=== PATIENT | male | born 1945 | race Caucasian/White ===

== ENCOUNTER 2018-02-02 09:05 | Inpatient (IN) | payer BC ==
[2018-01-25 14:38] LABS: BILIRUBIN,URINE NEGATIVE (NEGATIVE); BLOOD, URINE NEGATIVE (NEGATIVE); CLARITY/URINE CLEAR (CLEAR); COLOR,URINE YELLOW (YELLOW); GLUCOSE,URINE NEGATIVE (NEGATIVE); KETONES,URINE NEGATIVE (NEGATIVE); LEUKOCYTE ESTERASE ,URINE TRACE (NEGATIVE); NITRITE, URINE NEGATIVE (NEGATIVE); PH,URINE 5.5 (5.0-8.0); PROTEIN URINE NEGATIVE (NEGATIVE); UROBILINOGEN,URINE 0.2 (0.2-1.0)
[2018-01-25 14:44] LABS: BACTERIA,URINE FEW /HPF (None Seen); RBC,URINE NONE SEEN /HPF (0-3); WBC,URINE 0-3 /HPF (0-3)
[2018-01-25 14:45] LABS: MUCUS,URINE None Seen /LPF (None Seen)
[2018-01-25 14:50] LABS: ANION GAP 6 (5-15); CALCIUM 8.8 mg/dL (8.4-11.0); CHLORIDE 103 mmol/L (98-107); CREATININE 1.29 mg/dL (0.55-1.30); GLUCOSE 106 mg/dL (70-99); POTASSIUM 3.6 mmol/L (3.5-5.1); SODIUM SERUM 137 mmol/L (136-145); UREA NITROGEN, BLOOD 17 mg/dL (8-21)
[2018-01-25 14:57] LABS: BASOPHILS # (AUTO) 0.1 K/uL (0.0-0.2); BASOPHILS % (AUTO) 1.2 % (0.0-2.0); EOSINOPHILS # (AUTO) 0.8 K/uL (0.0-0.4); EOSINOPHILS % (AUTO) 10.6 % (0.0-4.0); HEMATOCRIT 34.5 % (36-54); HEMOGLOBIN 11.4 g/dL (14.0-18.0); LYMPHOCYTES # (AUTO) 1.7 K/uL (1.0-5.5); LYMPHOCYTES % (AUTO) 21.4 % (20.5-51.5); MEAN CORPUSCULAR HEMOGLOBIN 29 pg (27-31); MEAN CORPUSCULAR HGB CONC 33 % (32-36); MEAN CORPUSCULAR VOLUME 87 fL (79.0-98.0); MONOCYTES # (AUTO) 0.4 K/uL (0.0-1.0); MONOCYTES % (AUTO) 5.5 % (1.7-9.3); NEUTROPHILS # (AUTO) 4.8 K/uL (1.8-7.7); NEUTROPHILS % (AUTO) 61.3 % (40.0-70.0); PLATELET COUNT (AUTO) 269 K/uL (130-430); RED BLOOD CELL COUNT(AUTO) 3.98 MIL/uL (4.2-6.2); RED CELL DISTRIBUTION WIDTH 12.5 % (9.0-15.0); WHITE BLOOD COUNT (AUTO) 7.8 K/uL (4.8-10.8)
[~2018-02-02] VITALS: Ht 175.3 cm; Wt 72.6 kg
[~2018-02-02 09:05] MED LIST: AMLO-313 PO; DILT120C52 PO; FINA5TAB3 PO; HYDR12.585 PO; IBUP-1969 PO; LIP40 PO; OMEP40CA33 PO; TAMS-11 PO; TOPXL100 PO
[2018-02-02] MEDS ORDERED: CEFAZOLIN SOD 2 GM in D5W 50 ML IV ONE (09:15)
[2018-02-02] MEDS ORDERED: VANCOMYCIN HCL 1,000 MG in NS 250 ML IV ONE (09:15)
[2018-02-02] MEDS ORDERED: TRANEXAMIC ACID 1,000 MG/10 ML VIAL IV ONE (09:15)
[2018-02-02] MEDS ORDERED: TRAM50TA92 PO (09:41)
[2018-02-02] MEDS ORDERED: NALOXONE HCL 0.4 MG/ML AMP (NARCAN) IVP PRN ×4 (11:00→21:35)
[2018-02-02] MEDS ORDERED: DIPHENHYDRAMINE INJ 50 MG/ML VIAL IVP PRN ×2 (11:00)
[2018-02-02] MEDS ORDERED: ONDANSETRON HCL 4 MG/2 ML VIAL IVP PRN ×4 (11:00→13:45)
[2018-02-02] MEDS ORDERED: NALBUPHINE HCL 10 MG/ML AMP IVP PRN ×2 (11:00)
[2018-02-02] MEDS ORDERED: KETOROLAC TROMETHAMINE 60 MG/2 ML VIAL IM PRN (11:00)
[2018-02-02] MEDS ORDERED: OXYCODONE/ACETAMINOPHEN *10*mg/325 mg TABLET PO PRN (11:00)
[2018-02-02] MEDS ORDERED: fentaNYL CITRATE/PF 100 MCG/2 ML AMP IVP PRN ×2 (11:00)
[2018-02-02] MEDS ORDERED: KETOROLAC TROMETHAMINE 30 MG VIAL IVP PRN (11:00)
[2018-02-02] MEDS ORDERED: ROPIVACAINE 0.2% 550 ML INJ SCH (11:00)
[2018-02-02] MEDS ORDERED: MORPHINE SULFATE 10MG/10ML PF AMP SP SCH (11:00)
[2018-02-02] MEDS ORDERED: MORPHINE SULFATE 10MG/10ML PF AMP EP ONE (11:20)
[2018-02-02] MEDS ORDERED: MIDAZOLAM HCL 5 MG/5 ML VIAL IVP ONE (11:20)
[2018-02-02] MEDS ORDERED: LR 1,000 ML IV.SOLN IV ONE (11:20)
[2018-02-02] MEDS ORDERED: BUPIVACAINE /PF 0.75% 10 ML VIAL INJ ONE (11:20)
[2018-02-02] MEDS ORDERED: POLYMYXIN 500,000/BACIT.10,000 UNITS in NS IRR 1 L IR ONE (11:46)
[2018-02-02] MEDS ORDERED: DIPHENHYDRAMINE HCL 25 MG CAPSULE PO PRN (13:45)
[2018-02-02 14:45] VITALS: BP_SYST 103
[2018-02-02 15:00] VITALS: BP_SYST 103
[2018-02-02] MEDS: KCL 20 mEq in D5/0.45NS 1000mL 1,000 ML IV SCH ×2 (16:35→21:43)
[2018-02-02] MEDS ORDERED: TRANEXAMIC ACID 1,000 MG in NS 50 ML IV ONE (17:00)
[2018-02-02] MEDS: KETOROLAC TROMETHAMINE 15 MG VIAL IVP SCH ×2 (17:17→23:10)
[2018-02-02 17:51] VITALS: BP_SYST 103
[2018-02-02 18:00] VITALS: BP_SYST 106
[2018-02-02] MEDS: SENNOSIDES 8.6 MG TABLET PO SCH (20:20)
[2018-02-02] MEDS ORDERED: HYDROcodone/ACETAMIN 10-325 MG TAB PO PRN (20:30)
[2018-02-02] MEDS ORDERED: MORPHINE PCA 50 mg/50 mL NS IV PRN (21:15)
[2018-02-02] MEDS ORDERED: MORPHINE 4 MG/ML INJ. SYRINGE IVP PRN (22:00)
[2018-02-02 22:01] VITALS: BP_SYST 114
[2018-02-03] VITALS (8 sets, daily range): BP systolic 99–141
[2018-02-03] MEDS: KETOROLAC TROMETHAMINE 15 MG VIAL IVP SCH (05:06)
[2018-02-03] MEDS: KCL 20 mEq in D5/0.45NS 1000mL 1,000 ML IV SCH ×2 (05:38→13:43)
[2018-02-03 07:01] LABS: ANION GAP 3 (5-15); CALCIUM 8.8 mg/dL (8.4-11.0); CHLORIDE 104 mmol/L (98-107); CREATININE 0.94 mg/dL (0.55-1.30); GLUCOSE 104 mg/dL (70-99); POTASSIUM 4.2 mmol/L (3.5-5.1); SODIUM SERUM 136 mmol/L (136-145); UREA NITROGEN, BLOOD 16 mg/dL (8-21)
[2018-02-03 07:14] LABS: BASOPHILS % (AUTO) 0.6 % (0.0-2.0); EOSINOPHILS # (AUTO) 0.3 K/uL (0.0-0.4); EOSINOPHILS % (AUTO) 4.5 % (0.0-4.0); HEMATOCRIT 29.6 % (36-54); HEMOGLOBIN 9.8 g/dL (14.0-18.0); LYMPHOCYTES # (AUTO) 1.2 K/uL (1.0-5.5); LYMPHOCYTES % (AUTO) 15.8 % (20.5-51.5); MEAN CORPUSCULAR HEMOGLOBIN 29 pg (27-31); MEAN CORPUSCULAR HGB CONC 33 % (32-36); MEAN CORPUSCULAR VOLUME 87 fL (79.0-98.0); MONOCYTES # (AUTO) 0.6 K/uL (0.0-1.0); MONOCYTES % (AUTO) 8.5 % (1.7-9.3); NEUTROPHILS # (AUTO) 5.5 K/uL (1.8-7.7); NEUTROPHILS % (AUTO) 70.6 % (40.0-70.0); PLATELET COUNT (AUTO) 235 K/uL (130-430); RED BLOOD CELL COUNT(AUTO) 3.42 MIL/uL (4.2-6.2); RED CELL DISTRIBUTION WIDTH 12.5 % (9.0-15.0); WHITE BLOOD COUNT (AUTO) 7.6 K/uL (4.8-10.8)
[2018-02-03] MEDS: MULTIVITAMINS TAB 1 TABLET PO SCH (08:08)
[2018-02-03] MEDS: ASCORBIC ACID 500 MG TABLET PO SCH ×2 (08:08→21:47)
[2018-02-03] MEDS: RIVAROXABAN 10 MG TABLET PO SCH (09:18)
[2018-02-03] MEDS: HYDROcodone/ACETAMIN 7.5-325 MG TAB PO PRN ×3 (12:36→21:47)
[2018-02-03] MEDS: METOPROLOL SUCCINATE 50 MG TAB.SR.24H (TOPROL XL) PO SCH (15:08)
[2018-02-03] MEDS: SENNOSIDES 8.6 MG TABLET PO SCH (21:47)
[2018-02-04] VITALS: BP_SYST 133
[2018-02-04] MEDS: HYDROcodone/ACETAMIN 7.5-325 MG TAB PO PRN ×4 (04:21→21:07)
[2018-02-04 05:28] LABS: ANION GAP 9 (5-15); CHLORIDE 101 mmol/L (98-107); CREATININE 0.78 mg/dL (0.55-1.30); GLUCOSE 120 mg/dL (70-99); POTASSIUM 3.5 mmol/L (3.5-5.1); SODIUM SERUM 136 mmol/L (136-145); UREA NITROGEN, BLOOD 14 mg/dL (8-21)
[2018-02-04] MEDS: KCL 20 mEq in D5/0.45NS 1000mL 1,000 ML IV SCH ×3 (05:43→14:45)
[2018-02-04 06:21] LABS: BASOPHILS % (AUTO) 0.3 % (0.0-2.0); EOSINOPHILS # (AUTO) 0.2 K/uL (0.0-0.4); EOSINOPHILS % (AUTO) 1.7 % (0.0-4.0); HEMATOCRIT 29.8 % (36-54); HEMOGLOBIN 9.8 g/dL (14.0-18.0); LYMPHOCYTES % (AUTO) 9.7 % (20.5-51.5); MEAN CORPUSCULAR HEMOGLOBIN 28 pg (27-31); MEAN CORPUSCULAR HGB CONC 33 % (32-36); MEAN CORPUSCULAR VOLUME 86 fL (79.0-98.0); MONOCYTES # (AUTO) 0.7 K/uL (0.0-1.0); MONOCYTES % (AUTO) 6.7 % (1.7-9.3); NEUTROPHILS # (AUTO) 8.8 K/uL (1.8-7.7); NEUTROPHILS % (AUTO) 81.6 % (40.0-70.0); PLATELET COUNT (AUTO) 232 K/uL (130-430); RED BLOOD CELL COUNT(AUTO) 3.48 MIL/uL (4.2-6.2); RED CELL DISTRIBUTION WIDTH 12.8 % (9.0-15.0); WHITE BLOOD COUNT (AUTO) 10.7 K/uL (4.8-10.8)
[2018-02-04 08:00] VITALS: BP_SYST 116
[2018-02-04] MEDS: ASCORBIC ACID 500 MG TABLET PO SCH ×2 (08:12→21:07)
[2018-02-04] MEDS: METOPROLOL SUCCINATE 50 MG TAB.SR.24H (TOPROL XL) PO SCH (08:12)
[2018-02-04] MEDS: MULTIVITAMINS TAB 1 TABLET PO SCH (08:13)
[2018-02-04] MEDS: RIVAROXABAN 10 MG TABLET PO SCH (11:13)
[2018-02-04 11:51] VITALS: BP_SYST 113
[2018-02-04 16:53] VITALS: BP_SYST 118
[2018-02-04 19:40] VITALS: BP_SYST 112
[2018-02-04] MEDS: SENNOSIDES 8.6 MG TABLET PO SCH (21:07)
[2018-02-05 00:20] VITALS: BP_SYST 107
[2018-02-05 04:10] VITALS: BP_SYST 114
[2018-02-05 06:15] LABS: BASOPHILS % (AUTO) 0.5 % (0.0-2.0); EOSINOPHILS # (AUTO) 0.4 K/uL (0.0-0.4); EOSINOPHILS % (AUTO) 4.3 % (0.0-4.0); HEMOGLOBIN 9.5 g/dL (14.0-18.0); LYMPHOCYTES # (AUTO) 1.3 K/uL (1.0-5.5); LYMPHOCYTES % (AUTO) 14.3 % (20.5-51.5); MEAN CORPUSCULAR HEMOGLOBIN 28 pg (27-31); MEAN CORPUSCULAR HGB CONC 33 % (32-36); MEAN CORPUSCULAR VOLUME 86 fL (79.0-98.0); MONOCYTES # (AUTO) 0.6 K/uL (0.0-1.0); MONOCYTES % (AUTO) 6.8 % (1.7-9.3); NEUTROPHILS # (AUTO) 6.6 K/uL (1.8-7.7); NEUTROPHILS % (AUTO) 74.1 % (40.0-70.0); PLATELET COUNT (AUTO) 245 K/uL (130-430); RED BLOOD CELL COUNT(AUTO) 3.38 MIL/uL (4.2-6.2); RED CELL DISTRIBUTION WIDTH 12.6 % (9.0-15.0); WHITE BLOOD COUNT (AUTO) 8.9 K/uL (4.8-10.8)
[2018-02-05 06:55] LABS: ANION GAP 7 (5-15); CALCIUM 8.2 mg/dL (8.4-11.0); CHLORIDE 104 mmol/L (98-107); CREATININE 0.88 mg/dL (0.55-1.30); GLUCOSE 111 mg/dL (70-99); SODIUM SERUM 139 mmol/L (136-145); UREA NITROGEN, BLOOD 14 mg/dL (8-21)
[2018-02-05 08:00] VITALS: BP_SYST 123
[2018-02-05] MEDS: ASCORBIC ACID 500 MG TABLET PO SCH (08:12)
[2018-02-05] MEDS: METOPROLOL SUCCINATE 50 MG TAB.SR.24H (TOPROL XL) PO SCH (08:12)
[2018-02-05] MEDS: MULTIVITAMINS TAB 1 TABLET PO SCH (08:12)
[2018-02-05] MEDS: HYDROcodone/ACETAMIN 7.5-325 MG TAB PO PRN ×2 (09:42→13:57)
[2018-02-05] MEDS: RIVAROXABAN 10 MG TABLET PO SCH (09:42)
[2018-02-05] MEDS: KCL 20 mEq in D5/0.45NS 1000mL 1,000 ML IV SCH (10:00)
[2018-02-05 12:41] VITALS: BP_SYST 116
[2018-02-05 15:21] VITALS: BP_SYST 116
[2018-02-05 16:00] VITALS: BP_SYST 104
[2018-02-06] MEDS ORDERED: METOPROLOL SUCCINATE 50 MG TAB.SR.24H (TOPROL XL) PO SCH (09:00)
[2018-02-06] MEDS ORDERED: DILTIAZEM HCL 120 MG CAP.SR.24H PO SCH (09:00)
== END 2018-02-05 16:21 | disposition home health service (06) | DRG 470 ==
LOC: SMU 09:05
PROVIDERS: ADMIT Orthopaedic Surgery; ATTEND Orthopaedic Surgery
PROC: 3E0T3BZ Introduction of Anesthetic Agent into Peripheral Nerves and Plexi, Percutaneous Approach (ICD-10-PCS; 2018-02-02)
PROC: 0SRD0J9 Replacement of Left Knee Joint with Synthetic Substitute, Cemented, Open Approach (ICD-10-PCS; principal; 2018-02-02 12:00)
DX: M17.0 Bilateral primary osteoarthritis of knee (principal); I10 Essential (primary) hypertension; N40.0 Benign prostatic hyperplasia without lower urinary tract symptoms
CPT/HCPCS: 36415; 71046-TC; 73560-TC; 80048; 81000-TC; 85025; 86886; 86900; 86901; 86920; 87081; 87086; 88305; 88311; 94010; 97110-GP; 97116-GP; 97530-GP; 97535-GP; C1713; C1776; J0690; J1885; J2250; J2274; J2405; J2795; J3370; J3490; J7050; J7060; J7120

== ENCOUNTER 2018-04-20 09:00 | Inpatient (IN) | payer BC ==
[2018-04-12 12:05] LABS: BILIRUBIN,URINE NEGATIVE (NEGATIVE); BLOOD, URINE NEGATIVE (NEGATIVE); CLARITY/URINE CLEAR (CLEAR); COLOR,URINE YELLOW (YELLOW); GLUCOSE,URINE NEGATIVE (NEGATIVE); KETONES,URINE NEGATIVE (NEGATIVE); LEUKOCYTE ESTERASE ,URINE TRACE (NEGATIVE); NITRITE, URINE NEGATIVE (NEGATIVE); PROTEIN URINE NEGATIVE (NEGATIVE); UROBILINOGEN,URINE 0.2 (0.2-1.0)
[2018-04-12 12:15] LABS: BACTERIA,URINE FEW /HPF (None Seen); RBC,URINE 0-3 /HPF (0-3)
[2018-04-12 12:20] LABS: ANION GAP 5 (5-15); CALCIUM 8.5 mg/dL (8.4-11.0); CHLORIDE 104 mmol/L (98-107); GLUCOSE 96 mg/dL (70-99); SODIUM SERUM 138 mmol/L (136-145); UREA NITROGEN, BLOOD 15 mg/dL (8-21)
[2018-04-12 12:23] LABS: BASOPHILS # (AUTO) 0.1 K/uL (0.0-0.2); EOSINOPHILS # (AUTO) 0.8 K/uL (0.0-0.4); EOSINOPHILS % (AUTO) 11.3 % (0.0-4.0); HEMATOCRIT 33.2 % (36-54); HEMOGLOBIN 10.8 g/dL (14.0-18.0); LYMPHOCYTES # (AUTO) 1.4 K/uL (1.0-5.5); LYMPHOCYTES % (AUTO) 21.4 % (20.5-51.5); MEAN CORPUSCULAR HEMOGLOBIN 27 pg (27-31); MEAN CORPUSCULAR HGB CONC 33 % (32-36); MEAN CORPUSCULAR VOLUME 83 fL (79.0-98.0); MONOCYTES # (AUTO) 0.3 K/uL (0.0-1.0); MONOCYTES % (AUTO) 4.5 % (1.7-9.3); NEUTROPHILS # (AUTO) 4.2 K/uL (1.8-7.7); NEUTROPHILS % (AUTO) 61.8 % (40.0-70.0); PLATELET COUNT (AUTO) 303 K/uL (130-430); RED BLOOD CELL COUNT(AUTO) 4.01 MIL/uL (4.2-6.2); RED CELL DISTRIBUTION WIDTH 14.1 % (9.0-15.0); WHITE BLOOD COUNT (AUTO) 6.8 K/uL (4.8-10.8)
[~2018-04-20] VITALS: Ht 175.3 cm; Wt 65.8 kg
[~2018-04-20 09:00] MED LIST changes: -AMLO-313 PO; +DILT240C54 PO; +HYDR-3924 PO; +HYDR12.55; -HYDR12.585 PO; -IBUP-1969 PO; +NOR10 PO; +TAMS0.4C96 PO
[2018-04-20] MEDS ORDERED: CEFAZOLIN 2 GM IVPB PREMIX 50 ML IV ONE (09:15)
[2018-04-20] MEDS ORDERED: VANCOMYCIN HCL 1 GM/NS PREMIX 250 ML IV ONE (09:30)
[2018-04-20] MEDS ORDERED: TRANEXAMIC ACID 1,000 MG/10 ML VIAL IV ONE (11:30)
[2018-04-20] MEDS ORDERED: FERR140T PO (11:39)
[2018-04-20] MEDS ORDERED: POLYMYXIN 500,000/BACIT.10,000 UNITS in NS IRR 1 L IR ONE (11:54)
[2018-04-20] MEDS ORDERED: ONDANSETRON HCL 4 MG/2 ML VIAL IVP PRN ×2 (13:00→14:30)
[2018-04-20] MEDS ORDERED: FENT2mCg/mL-ROPIVA0.2%/NS EPID 150 ML EP SCH (13:00)
[2018-04-20] MEDS ORDERED: DIPHENHYDRAMINE INJ 50 MG/ML VIAL IVP PRN (13:00)
[2018-04-20] MEDS ORDERED: NALOXONE HCL 0.4 MG/ML AMP (NARCAN) IVP PRN (13:00)
[2018-04-20] MEDS ORDERED: FENT2mCg/mL-ROPIVA0.2%/NS EPID 100 ML EP SCH (13:36)
[2018-04-20] MEDS ORDERED: ONDANSETRON HCL 4 MG/2 ML VIAL ONE (14:15)
[2018-04-20] MEDS ORDERED: PROPOFOL 200MG/ 20ML VIAL (DIPRIVAN) IV ONE (14:15)
[2018-04-20] MEDS ORDERED: NS IRRIG SOLN 1000 ML IR ONE (14:15)
[2018-04-20] MEDS ORDERED: LIDOCAINE 2%, 20 ML MDV ONE (14:15)
[2018-04-20] MEDS ORDERED: LR 1,000 ML IV.SOLN IV ONE (14:15)
[2018-04-20] MEDS ORDERED: ePHEDrine sulfate 50 MG/ML VIAL ONE (14:15)
[2018-04-20] MEDS ORDERED: MIDAZOLAM HCL 5 MG/ML VIAL (VERSED) IV ONE (14:15)
[2018-04-20] MEDS ORDERED: DIPHENHYDRAMINE HCL 25 MG CAPSULE PO PRN (14:30)
[2018-04-20 16:02] VITALS: BP_SYST 93
[2018-04-20 16:24] VITALS: BP_SYST 93
[2018-04-20] MEDS: KETOROLAC TROMETHAMINE 15 MG VIAL IVP SCH (17:27)
[2018-04-20] MEDS ORDERED: COMMUNICATION ORDER XX ONE (17:30)
[2018-04-20] MEDS ORDERED: TRANEXAMIC ACID 1,000 MG in NS 50 ML IV ONE (17:30)
[2018-04-20] MEDS: D5/0.45 NS 1,000 ML IV SCH (17:46)
[2018-04-20 20:00] VITALS: BP_SYST 112
[2018-04-20] MEDS: SENNOSIDES 8.6 MG TABLET PO SCH (22:01)
[2018-04-21] VITALS: BP_SYST 126
[2018-04-21] MEDS: KETOROLAC TROMETHAMINE 15 MG VIAL IVP SCH ×2 (00:26→06:08)
[2018-04-21] MEDS: D5/0.45 NS 1,000 ML IV SCH ×4 (02:37→22:04)
[2018-04-21 06:37] LABS: BASOPHILS % (AUTO) 0.3 % (0.0-2.0); EOSINOPHILS # (AUTO) 0.5 K/uL (0.0-0.4); EOSINOPHILS % (AUTO) 6.2 % (0.0-4.0); HEMATOCRIT 30.4 % (36-54); HEMOGLOBIN 9.7 g/dL (14.0-18.0); LYMPHOCYTES % (AUTO) 11.9 % (20.5-51.5); MEAN CORPUSCULAR HEMOGLOBIN 27 pg (27-31); MEAN CORPUSCULAR HGB CONC 32 % (32-36); MEAN CORPUSCULAR VOLUME 83 fL (79.0-98.0); MONOCYTES # (AUTO) 0.7 K/uL (0.0-1.0); MONOCYTES % (AUTO) 8.5 % (1.7-9.3); NEUTROPHILS # (AUTO) 6.3 K/uL (1.8-7.7); NEUTROPHILS % (AUTO) 73.1 % (40.0-70.0); PLATELET COUNT (AUTO) 264 K/uL (130-430); RED BLOOD CELL COUNT(AUTO) 3.65 MIL/uL (4.2-6.2); RED CELL DISTRIBUTION WIDTH 13.9 % (9.0-15.0); WHITE BLOOD COUNT (AUTO) 8.5 K/uL (4.8-10.8)
[2018-04-21 07:07] LABS: ANION GAP 6 (5-15); CALCIUM 7.9 mg/dL (8.4-11.0); CHLORIDE 106 mmol/L (98-107); GLUCOSE 125 mg/dL (70-99); POTASSIUM 3.5 mmol/L (3.5-5.1); SODIUM SERUM 139 mmol/L (136-145); UREA NITROGEN, BLOOD 9 mg/dL (8-21)
[2018-04-21 08:00] VITALS: BP_SYST 114
[2018-04-21] MEDS ORDERED: MULTIVITAMINS TAB 1 TABLET PO SCH (09:00)
[2018-04-21] MEDS: MULTIVITAMINS TAB 1 TABLET PO SCH (09:08)
[2018-04-21] MEDS: ASCORBIC ACID 500 MG TABLET PO SCH ×2 (09:08→20:47)
[2018-04-21] MEDS: FERROUS SULFATE 140 MG TABLET.ER PO SCH (09:45)
[2018-04-21] MEDS: RIVAROXABAN 10 MG TABLET PO SCH (09:45)
[2018-04-21 12:55] VITALS: BP_SYST 130
[2018-04-21] MEDS: HYDROcodone/ACETAMIN 7.5-325 MG TAB PO PRN (14:46)
[2018-04-21] MEDS: HYDROcodone/ACETAMIN 10-325 MG TAB PO PRN (16:54)
[2018-04-21 16:55] VITALS: BP_SYST 126
[2018-04-21] MEDS: MORPHINE 4 MG/ML INJ. SYRINGE IVP PRN ×2 (18:09→22:04)
[2018-04-21 20:00] VITALS: BP_SYST 132
[2018-04-21] MEDS: SENNOSIDES 8.6 MG TABLET PO SCH (20:47)
[2018-04-22] VITALS: BP_SYST 139
[2018-04-22] MEDS: MORPHINE 4 MG/ML INJ. SYRINGE IVP PRN (02:00)
[2018-04-22] MEDS: HYDROcodone/ACETAMIN 10-325 MG TAB PO PRN ×3 (04:05→22:53)
[2018-04-22] MEDS: D5/0.45 NS 1,000 ML IV SCH ×2 (06:17→20:09)
[2018-04-22 06:42] LABS: BASOPHILS # (AUTO) 0.1 K/uL (0.0-0.2); BASOPHILS % (AUTO) 0.5 % (0.0-2.0); EOSINOPHILS # (AUTO) 0.2 K/uL (0.0-0.4); EOSINOPHILS % (AUTO) 1.7 % (0.0-4.0); HEMATOCRIT 29.2 % (36-54); HEMOGLOBIN 9.7 g/dL (14.0-18.0); LYMPHOCYTES # (AUTO) 1.1 K/uL (1.0-5.5); LYMPHOCYTES % (AUTO) 10.6 % (20.5-51.5); MEAN CORPUSCULAR HEMOGLOBIN 27 pg (27-31); MEAN CORPUSCULAR HGB CONC 33 % (32-36); MEAN CORPUSCULAR VOLUME 83 fL (79.0-98.0); MONOCYTES # (AUTO) 0.7 K/uL (0.0-1.0); MONOCYTES % (AUTO) 6.6 % (1.7-9.3); NEUTROPHILS # (AUTO) 8.5 K/uL (1.8-7.7); NEUTROPHILS % (AUTO) 80.6 % (40.0-70.0); PLATELET COUNT (AUTO) 234 K/uL (130-430); RED BLOOD CELL COUNT(AUTO) 3.54 MIL/uL (4.2-6.2); RED CELL DISTRIBUTION WIDTH 13.6 % (9.0-15.0); WHITE BLOOD COUNT (AUTO) 10.6 K/uL (4.8-10.8)
[2018-04-22 06:56] LABS: ANION GAP 6 (5-15); CALCIUM 7.8 mg/dL (8.4-11.0); CHLORIDE 104 mmol/L (98-107); CREATININE 0.99 mg/dL (0.55-1.30); GLUCOSE 151 mg/dL (70-99); POTASSIUM 3.3 mmol/L (3.5-5.1); SODIUM SERUM 135 mmol/L (136-145); UREA NITROGEN, BLOOD 9 mg/dL (8-21)
[2018-04-22] MEDS ORDERED: POTASSIUM CHLORIDE 20 MEQ TAB.PRT.SR PO ONE (08:00)
[2018-04-22 08:37] VITALS: BP_SYST 136
[2018-04-22] MEDS: FERROUS SULFATE 140 MG TABLET.ER PO SCH (09:46)
[2018-04-22] MEDS: MULTIVITAMINS TAB 1 TABLET PO SCH (09:46)
[2018-04-22] MEDS: ASCORBIC ACID 500 MG TABLET PO SCH ×2 (09:46→20:08)
[2018-04-22] MEDS: RIVAROXABAN 10 MG TABLET PO SCH (09:48)
[2018-04-22] MEDS ORDERED: VERAPAMIL HCL 120 MG TABLET.SA PO ONE (10:15)
[2018-04-22 12:43] VITALS: BP_SYST 138
[2018-04-22] MEDS: HYDROcodone/ACETAMIN 7.5-325 MG TAB PO PRN ×2 (14:27→18:53)
[2018-04-22 16:50] VITALS: BP_SYST 142
[2018-04-22] MEDS ORDERED: ACETAMINOPHEN 500 MG TABLET PO ONE (17:30)
[2018-04-22 18:51] LABS: BILIRUBIN,URINE NEGATIVE (NEGATIVE); BLOOD, URINE 3+ (NEGATIVE); CLARITY/URINE CLEAR (CLEAR); COLOR,URINE YELLOW (YELLOW); GLUCOSE,URINE NEGATIVE (NEGATIVE); KETONES,URINE NEGATIVE (NEGATIVE); LEUKOCYTE ESTERASE ,URINE NEGATIVE (NEGATIVE); NITRITE, URINE NEGATIVE (NEGATIVE); PROTEIN URINE TRACE (NEGATIVE); UROBILINOGEN,URINE 0.2 (0.2-1.0)
[2018-04-22 18:55] LABS: BACTERIA,URINE FEW /HPF (None Seen); RBC,URINE 20-50 /HPF (0-3); WBC,URINE 0-3 /HPF (0-3)
[2018-04-22 20:00] VITALS: BP_SYST 117
[2018-04-22] MEDS: SENNOSIDES 8.6 MG TABLET PO SCH (20:08)
[2018-04-23] VITALS (7 sets, daily range): BP systolic 106–137
[2018-04-23] MEDS: HYDROcodone/ACETAMIN 7.5-325 MG TAB PO PRN (02:50)
[2018-04-23] MEDS: METOPROLOL SUCCINATE 50 MG TAB.SR.24H (TOPROL XL) PO SCH ×2 (04:00→08:56)
[2018-04-23] MEDS: D5/0.45 NS 1,000 ML IV SCH ×2 (06:17→14:17)
[2018-04-23 06:22] LABS: BASOPHILS # (AUTO) 0.1 K/uL (0.0-0.2); BASOPHILS % (AUTO) 0.6 % (0.0-2.0); EOSINOPHILS # (AUTO) 0.7 K/uL (0.0-0.4); EOSINOPHILS % (AUTO) 7.3 % (0.0-4.0); HEMATOCRIT 28.4 % (36-54); HEMOGLOBIN 9.3 g/dL (14.0-18.0); LYMPHOCYTES % (AUTO) 10.3 % (20.5-51.5); MEAN CORPUSCULAR HEMOGLOBIN 27 pg (27-31); MEAN CORPUSCULAR HGB CONC 33 % (32-36); MEAN CORPUSCULAR VOLUME 83 fL (79.0-98.0); MONOCYTES # (AUTO) 0.5 K/uL (0.0-1.0); MONOCYTES % (AUTO) 5.6 % (1.7-9.3); NEUTROPHILS # (AUTO) 7.2 K/uL (1.8-7.7); NEUTROPHILS % (AUTO) 76.2 % (40.0-70.0); PLATELET COUNT (AUTO) 262 K/uL (130-430); RED BLOOD CELL COUNT(AUTO) 3.42 MIL/uL (4.2-6.2); RED CELL DISTRIBUTION WIDTH 13.9 % (9.0-15.0); WHITE BLOOD COUNT (AUTO) 9.5 K/uL (4.8-10.8)
[2018-04-23] MEDS: HYDROcodone/ACETAMIN 10-325 MG TAB PO PRN ×5 (06:45→22:57)
[2018-04-23 06:47] LABS: ANION GAP 6 (5-15); CALCIUM 8.1 mg/dL (8.4-11.0); CHLORIDE 107 mmol/L (98-107); CREATININE 0.93 mg/dL (0.55-1.30); GLUCOSE 106 mg/dL (70-99); SODIUM SERUM 140 mmol/L (136-145); UREA NITROGEN, BLOOD 10 mg/dL (8-21)
[2018-04-23] MEDS: VERAPAMIL HCL 120 MG TABLET.SA PO SCH (08:57)
[2018-04-23] MEDS: FERROUS SULFATE 140 MG TABLET.ER PO SCH (08:58)
[2018-04-23] MEDS: ASCORBIC ACID 500 MG TABLET PO SCH ×2 (08:58→20:26)
[2018-04-23] MEDS: MULTIVITAMINS TAB 1 TABLET PO SCH (08:58)
[2018-04-23] MEDS: RIVAROXABAN 10 MG TABLET PO SCH (10:20)
[2018-04-23] MEDS: SENNOSIDES 8.6 MG TABLET PO SCH (20:26)
[2018-04-24 00:37] VITALS: BP_SYST 112
[2018-04-24] MEDS: HYDROcodone/ACETAMIN 10-325 MG TAB PO PRN ×3 (03:04→11:20)
[2018-04-24] MEDS: D5/0.45 NS 1,000 ML IV SCH ×2 (03:05→04:56)
[2018-04-24 08:07] VITALS: BP_SYST 131
[2018-04-24] MEDS: MULTIVITAMINS TAB 1 TABLET PO SCH (08:31)
[2018-04-24] MEDS: FERROUS SULFATE 140 MG TABLET.ER PO SCH (08:32)
[2018-04-24] MEDS: ASCORBIC ACID 500 MG TABLET PO SCH (08:32)
[2018-04-24] MEDS: METOPROLOL SUCCINATE 50 MG TAB.SR.24H (TOPROL XL) PO SCH (08:32)
[2018-04-24] MEDS: VERAPAMIL HCL 120 MG TABLET.SA PO SCH (08:32)
[2018-04-24] MEDS: RIVAROXABAN 10 MG TABLET PO SCH (10:12)
[2018-04-24 12:19] VITALS: BP_SYST 112
[2018-04-24] MEDS ORDERED: DILT240C91 PO (12:53)
[2018-04-24 13:26] VITALS: BP_SYST 112
== END 2018-04-24 13:16 | disposition home health service (06) | DRG 470 ==
LOC: SMU 09:00 → STU 15:33
PROVIDERS: ADMIT Orthopaedic Surgery; ATTEND Orthopaedic Surgery
PROC: 0SRC0J9 Replacement of Right Knee Joint with Synthetic Substitute, Cemented, Open Approach (ICD-10-PCS; principal; 2018-04-20 12:00)
DX: M17.11 Unilateral primary osteoarthritis, right knee (principal); D62 Acute posthemorrhagic anemia; I10 Essential (primary) hypertension; Z96.652 Presence of left artificial knee joint; Z82.49 Family history of ischemic heart disease and other diseases of the circulatory system; N40.0 Benign prostatic hyperplasia without lower urinary tract symptoms; I49.9 Cardiac arrhythmia, unspecified; Z83.3 Family history of diabetes mellitus; Z82.61 Family history of arthritis; Z79.1 Long term (current) use of non-steroidal anti-inflammatories (NSAID); Z79.899 Other long term (current) drug therapy
CPT/HCPCS: 36415; 71045; 73560-TC; 80048; 81000-TC; 85025; 86886; 86900; 86901; 86920; 87081; 87086; 88305; 88311; 97110-GP; 97116-GP; 97530-GP; 97535-GP; C1713; J0690; J1885; J2001; J2250; J2270; J2405; J2704; J3010; J3370; J3490; J7120